=== PATIENT | female | born 1970 | race African-American/Black ===

== ENCOUNTER 2023-08-31 07:29 | Outpatient (CLI) | payer OTHER, SELFPAY ==
[2023-08-31 12:35] LABS: Basophils Percent Auto 0.6 % (0.2-1.2); Eosinophils Absolute Auto 0.3 K/mm3 (0-0.3); Eosinophils Percent Auto 3.9 % (0-4.4); Hematocrit 43.1 % (37.0-47.0); Hemoglobin 13.6 g/dL (12.0-15.0); Immature Granulocyte Absolute 0.02 K/mm3 (0.00-0.031); Immature Granulocyte Percent A 0.3 % (0-0.5); Lymphocytes Absolute Auto 1.78 K/mm3 (0.9-3.2); Lymphocytes Percent Auto 24.6 % (18.3-44.2); Mean Corpuscular HGB Conc 31.6 g/dl (32-36); Mean Corpuscular Hemoglobin 28.2 pg (26-34); Mean Corpuscular Volume 89.4 fl (80-100); Mean Platelet Volume 10.5 fl (7.4-10.4); Monocytes Absolute Auto 0.4 K/mm3 (0.1-0.6); Monocytes Percent Auto 5.8 % (2.6-8.5); Neutrophils Absolute Auto 4.7 K/mm3 (1.3-6.7); Neutrophils Percent Auto 64.8 % (45.5-73.1); Platelet Count Result 282 k/mm3 (150-375); Red Blood Count 4.82 M/mm3 (4.2-5.4); Red Cell Distribution Width 14.4 % (11.5-14.5); White Blood Count 7.2 K/mm3 (4.5-10.0)
[2023-08-31 12:36] LABS: Alanine Aminotransferase 16 U/L (6-35); Albumin Level 4.7 g/dL (3.5-5.1); Alkaline Phosphatase 68 U/L (38-126); Anion Gap 5 mmol/L (4-12); Aspartate Amino Transferase 51 U/L (14-36); Bilirubin,Total 0.9 mg/dL (0.2-1.3); Blood Urea Nitrogen 12 mg/dL (7-17); Calcium 9.5 mg/dL (8.4-10.2); Carbon Dioxide 28 mmol/L (22-30); Chloride 103 mmol/L (98-107); Cholesterol 224 mg/dL (0-200); Estimated Glomerular Filt Rate > 60; Glucose 86 mg/dL (65-110); HDL Direct 73 mg/dL; Sodium 136 mmol/L (137-145); Triglycerides 70 mg/dL (<150)
[2023-08-31 12:46] LABS: Creatinine Urine 118.5 mg/dL
[2023-08-31 12:47] LABS: LDL Cholesterol Direct 124 mg/dL
[2023-08-31 13:05] LABS: MALB Creatinine Ratio < 5.1 mg/g (0-30); Microalbumin Urine Random < 6.0 mg/L (0-16.7)
== END 2023-08-31 07:30 | disposition home or self-care (01) ==
LOC: ANHWCLAB 07:31
PROVIDERS: PCP Family Medicine; Visit Provider Physician Assistant Medical
DX: E11.9 Type 2 diabetes mellitus without complications (principal); E78.5 Hyperlipidemia, unspecified
CPT/HCPCS: 36415; 80053; 80061; 82043; 85025

== ENCOUNTER 2023-12-17 08:12 | Outpatient (CLI) | payer OTHER, SELFPAY ==
--- NOTE | ~2023-12-17 | MM_ITS ---
EXAMINATION: MM screening sam BI w yasmin HISTORY: Screening TECHNIQUE: Craniocaudal and mediolateral oblique 3-D tomosynthesis images were obtained and synthetic 2-D images were generated. CAD analysis was submitted and interpreted. COMPARISON: No prior mammogram is available for comparison at this institution. BREAST PARENCHYMAL COMPOSITION: Not dense: There are scattered areas of fibroglandular density. FINDINGS: There is no evidence of suspicious mass, calcification, or architectural distortion to sugg est malignancy in either breast. There has been no suspicious interval change. IMPRESSION: 1. No mammographic evidence of malignancy. 2. Recommend routine screening mammography in one year. BI-RADS Category 1: Negative Reviewed, dictated and finalized at location B.
== END 2023-12-17 08:13 | disposition home or self-care (01) ==
LOC: ANHIMG 08:13
PROVIDERS: PCP Family Medicine; Visit Provider Physician Assistant Medical
DX: Z12.31 Encounter for screening mammogram for malignant neoplasm of breast (principal)
CPT/HCPCS: 77063; 77067

== ENCOUNTER 2024-02-28 16:16 | Outpatient (CLI) | payer OTHER, SELFPAY ==
[2024-02-28 16:43] LABS: Basophils Percent Auto 0.4 % (0.2-1.2); Eosinophils Absolute Auto 0.3 K/mm3 (0-0.3); Eosinophils Percent Auto 3.7 % (0-4.4); Hematocrit 38.8 % (37.0-47.0); Hemoglobin 12.7 g/dL (12.0-15.0); Immature Granulocyte Absolute 0.02 K/mm3 (0.00-0.031); Immature Granulocyte Percent A 0.3 % (0-0.5); Lymphocytes Percent Auto 32.2 % (18.3-44.2); Mean Corpuscular HGB Conc 32.7 g/dl (32-36); Mean Corpuscular Hemoglobin 28.7 pg (26-34); Mean Corpuscular Volume 87.6 fl (80-100); Mean Platelet Volume 9.6 fl (7.4-10.4); Monocytes Absolute Auto 0.5 K/mm3 (0.1-0.6); Monocytes Percent Auto 6.6 % (2.6-8.5); Neutrophils Absolute Auto 4.4 K/mm3 (1.3-6.7); Neutrophils Percent Auto 56.8 % (45.5-73.1); Platelet Count Result 265 k/mm3 (150-375); Red Blood Count 4.43 M/mm3 (4.2-5.4); Red Cell Distribution Width 14.4 % (11.5-14.5); White Blood Count 7.8 K/mm3 (4.5-10.0)
[2024-02-28 16:53] LABS: Alanine Aminotransferase 15 U/L (6-35); Albumin Level 4.4 g/dL (3.5-5.1); Alkaline Phosphatase 63 U/L (38-126); Aspartate Amino Transferase 20 U/L (14-36); Bilirubin,Total 0.7 mg/dL (0.2-1.3)
[2024-02-28 17:03] LABS: Iron 49 ug/dL (37-170)
[2024-02-28 17:12] LABS: Percent Iron Saturation 17 % (20-50)
== END 2024-02-28 16:17 | disposition home or self-care (01) ==
PROVIDERS: PCP Family Medicine; Visit Provider Physician Assistant Medical
DX: R79.89 Other specified abnormal findings of blood chemistry (principal); R23.3 Spontaneous ecchymoses
CPT/HCPCS: 36415; 80076; 83540; 83550; 84443; 85025

== ENCOUNTER 2024-06-05 11:50 | Outpatient (CLI) | payer OTHER, SELFPAY ==
--- NOTE | ~2024-06-05 | XR_ITS ---
Left Knee Technique: AP, lateral, and sunrise views were obtained. Clinical History: Pain Findings: No fracture or dislocation is seen. Osseous alignment is anatomic. Joint spaces are preserv ed without degenerative or erosive change. Soft tissues are unremarkable. No joint effusion is seen. Impression: Unremarkable left knee radiographs. Reviewed, dictated and finalized at location . SIT CLERK Impression: Unremarkable left knee radiographs.
== END 2024-06-05 11:51 | disposition home or self-care (01) ==
LOC: MICIMG 11:51
PROVIDERS: PCP Family Medicine; Visit Provider Physician Assistant Medical
DX: M25.562 Pain in left knee (principal)
CPT/HCPCS: 73562

== ENCOUNTER 2024-07-12 16:00 | Outpatient (RCR) | payer OTHER, SELFPAY ==
--- NOTE | 2024-06-14 17:34 | OPREHPOC ---
Outpatient Therapy Plan of Care This is a Multidisciplinary Plan of Care that may contain components documented by all disciplines (PT, OT, and ST.) PT Problem 1 PT Problem #1 Knowledge Deficit PT Goal 1 Goal / Goal Update Potter with HEP Target Visit 4 PT Goal 2 Goal / Goal Update Report no pain greater than 2/10 for 2 consecutive weeks Target Visit 8 PT Problem 2 PT Problem #2 Impaired Range of Motion PT Goal 1 Goal / Goal Update Demonstrate 130 degrees L knee flexion Target Visit 8 PT Problem 3 PT Problem #3 Impaired Strength PT Goal 1 Goal / Goal Update Demonstrate gross L knee strength of 5/5 to improve stability with functional activity Target Visit 8 PT Problem 4 PT Problem #4 Impaired Gait PT Goal 1 Goal / Goal Update Patient will ambulate with even stride length bilaterally Target Visit 8
--- NOTE | 2024-06-14 17:34 | PTOPEVAL1 ---
Assessment and note entered by Gopal Del Valle, PT Evaluation Information Assessment Status Evaluation ICD-10 Condition Codes (PT) Pain in left knee M25.562 Onset May 2024 Subjective Information Reports that she woke up about 3 weeks ago with pain. Hurts the worst at the end of the day when she has been active. Pain is activity dependent. Reports that she is getting some numbness in her foot occasionally as well. Reported Pain Level Pain Score 8: Self Report Assessment PT Clinical Summary Patient presents with signs and symptoms consistent with possible meniscus injury. Demonstrates positive MacMurray teat, knee edema, and medial/posterior knee pain. Locking present with tibial torsion. Patient will benefit form skilled therapy to work on knee ORM and strength to promote improved function. Should we not see improvement over the next couple of weeks, further imaging would be warranted. Plan of Care Interventions Electrical Stimulation,Hot Pack/Cold Pack,Neuro Re -education,Therapeutic Activities,Therapeutic Exercise PT Services Indicated Yes Treatment Frequency and 2x/week for 8 visits Duration These treatments will address the objective and functional deficits as defined above. The patient will be advanced safely and appropriately in order for the patient to progress towards his/her prior level of function. Additional exercises will be introduced and as well as a comprehensive home exercise program upon discharge, if needed, ?to ensure carryover of functional gains achieved in the clinic. This treatment plan has been reviewed and agreement upon by the patient.
--- NOTE | 2024-07-09 16:35 | PCPTNOTE ---
Cancelled appt, 15 min late. Pt had to roll picker grandchild from school. Pt was printed out schedule for future reference. MARITA
--- NOTE | 2024-07-26 10:56 | PCPTNOTE ---
Pt called to cancel her appointment and future appointments as she followed up with her MD who wants her to hold off on PT until further notice. She will call to schedule future appointments if needed.
--- NOTE | 2024-09-06 10:33 | PTOPDC ---
Assessment and note entered by Gopal Del Valle, PT Evaluation Information Assessment Status Discharge - Pt Not Present ICD-10 Condition Codes (PT) Pain in left knee M25.562 Onset May 2024 Subjective Information Patient cancelled all future PT appointments after discussion with MD per patient report. Assessment PT Clinical Summary Patient to be discharged from skilled therapy at this time to [facility]. Please refer to last treatment note for discharge status. Plan of Care PT Services Indicated Yes
== END 2024-09-06 15:12 | disposition home or self-care (01) ==
LOC: ANHPT 16:00
PROVIDERS: PCP Family Medicine; Visit Provider Physician Assistant Medical
DX: M25.562 Pain in left knee (principal)
CPT/HCPCS: 97014; 97016; 97110; 97116; 97140; 97161; G0283

== ENCOUNTER 2024-08-04 10:14 | Outpatient (CLI) | payer OTHER, SELFPAY ==
--- NOTE | ~2024-08-04 | MR_ITS ---
MRI of the left knee Clinical history: Pain Technique: Coronal proton density and proton density-weighted images, sagittal proton-density and T2 fat-sat images, and axial proton-density fat-saturated images were acquired. Findings: Anterior and posterior cruciate ligaments are intact. Medial collateral ligament and the la teral collateral ligament complex are intact. Popliteus tendon is intact. Medial and lateral menisci are intact, without evidence of tear. There is moderate to high-grade chondromalacia along the lateral patellar facet. There is mild chondr al thinning at the medial lateral joint lines. Extensor mechanism is intact. No joint effusion or Rosenthal's cyst. Impression: Chondromalacia patella, as detailed above. No ligamentous injury or meniscal tear seen. Reviewed, dictated and finalized at [facility]. Impression: Chondromalacia patella, as detailed above. No ligamentous injury or meniscal tear seen.
== END 2024-08-04 10:15 | disposition home or self-care (01) ==
LOC: MICIMG 10:15
PROVIDERS: PCP Family Medicine; Visit Provider Orthopaedic Surgery
DX: M25.562 Pain in left knee (principal); M22.42 Chondromalacia patellae, left knee
CPT/HCPCS: 73721

== ENCOUNTER 2024-10-24 08:02 | Outpatient (CLI) | payer OTHER, SELFPAY ==
--- OUTSIDE RECORDS SUMMARY | 2024-10-24 08:10 | XMS_ITS | CONTINUITY OF CARE DOCUMENT ---
Author Name walt godoy Address Unknown Organization [facility] Address [id number] [place] [address] [address] [place] [address] Phone [phone] Care Team Providers Care Trash Collector Truck Driver Name Role Phone Elier PEREZ, Sophie Unavailable [phone] INSURANCE PROVIDERS Payer name Policy type / Coverage type Caitie red libertarian ID [employer] CHOICE POS II Commercial insurance company [id number]
[2024-10-24 08:52] LABS: Add Urine Microscopic? NO; Appearance Urine Clear (Clear); Bilirubin Urine Negative (Negative); Blood Urine Negative (Negative); Color Urine Yellow (Yellow); Glucose Urine UA Negative (Negative); Ketones Urine Negative (Negative); Leukocyte Esterase Ur Negative LEU/UL (Negative); Nitrate Urine Negative (Negative); Protein Urine Negative (Negative); Specific Grav Ur 1.017 (1.001-1.035); Urobilinogen Urine 0.2 mg/dL (<2.0); pH Urine 5.5 (5.0-9.0)
== END 2024-10-24 08:03 | disposition home or self-care (01) ==
LOC: ANHLAB 08:04
PROVIDERS: PCP Family Medicine; Visit Provider Nurse Practitioner Family
DX: R30.0 Dysuria (principal)
CPT/HCPCS: 81003